=== PATIENT | male | born 1985 | race Hispanic/Latino ===

== ENCOUNTER 2024-02-28 21:00 | Emergency (ER) | payer OTHER ==
[~2024-02-28] VITALS: Ht 180.3 cm; Wt 104.3 kg
[2024-02-28] MEDS ORDERED: CLIN-141 PO (21:31)
[2024-02-28] MEDS ORDERED: DIPH50 PO (21:31)
[2024-02-28] MEDS: CLINDAMYCIN 150 MG CAP PO ONE (22:02)
[2024-02-28] MEDS: DiphenhydrAMINE HCL 25 MG CAPSULE PO ONE (22:02)
[2024-02-28 22:11] VITALS: BP 128/79; PULSE 78; RESP 18; O2SAT 98
== END 2024-02-28 22:16 | disposition home or self-care (01) ==
LOC: EDH 21:00
DX: S60.862A Insect bite (nonvenomous) of left wrist, initial encounter (principal); L08.9 Local infection of the skin and subcutaneous tissue, unspecified; E11.9 Type 2 diabetes mellitus without complications; W57.XXXA Bitten or stung by nonvenomous insect and other nonvenomous arthropods, initial encounter; Y93.89 Activity, other specified; Y92.89 Other specified places as the place of occurrence of the external cause; Y99.0 Civilian activity done for income or pay
CPT/HCPCS: 99283; Q0163